=== PATIENT | female | born 1965 | race Caucasian/White ===

== ENCOUNTER 2017-12-23 12:16 | Observation (INO) ==
[2017-12-23] MEDS ORDERED: ZOFRAN INJ 4 MG VIAL IVP PRN (13:41)
--- NOTE | 2017-12-23 13:47 | DR.H&P ---
H&P - History & Physical for Day of: H&P Date: 12/23/17 - Chief Complaint Chief Complaint: "feels weak, sick on stomach" hyperglycemia - History of Present Illness History of Present Illness: 52 WF DIRECT ADMIT FROM DR LAWRENCE OFFICE WITH HYPERGLYCEMIA, MODERATE URINE KETONES, WEAKNESS AND CO "SICK ON HER STOMACH". PT IS TYPE 2 DIABETIC, SEEN EARLIER IN THE [place] IN OFFICE NEW PATIENT AND HAD LABS, RESULT REVEALED CRITICAL GLUCOSE >600. PT STATES SHE HAS NOVOLOG AND LEVEMIR AT HOME BUT NOT COMPLIANT DUE TO NO GLUCOMETER. PT STATES SHE HAS BEEN SICK ON AND OFF FOR MONTH. PT HAD REPEAT GLUCOSE IN OFFICE >400. PT HAS PMH OF DM, OA, HTN, ИРИНА, ASTHM/COPD. PT ADMITTED FOR TREATMENT OF HYPERCYLEMIA, R/O DKA , HYDRATION. - Past Medical History Past Medical History: Anxiety, Arthritis, Asthma, COPD, Depression, Diabetes, GERD, Hypertension - Past Surgical History Surgical History: Unknown - Family History Family Medical History: Coronary Artery Disease, Hypertension - Social History Does patient currently use any type of tobacco product: No Have you used tobacco products in the last 12 months: No Type of Tobacco Use: None Does any household member use tobacco: No Alcohol Use: None Drug Use: None - Review of Systems Constitutional: Weakness, Malaise Eyes: No Symptoms Reported ENT: No Symptoms Reported Respiratory: SOB with Excertion Cardiovascular: No Symptoms Reported, Edema Gastrointestinal: Nausea, Vomiting Genitourinary: No Symptoms Reported Musculoskeletal: Leg Pain Skin: No Symptoms Reported Neurological: Weakness Oriented: Normal Eyes: Normal Ear: Normal Nose: Normal Throat: Normal Respiratory: RLL Diminished, LLL Diminished Cardiovascular: Normal, Edema : Normal Auscultation: Bowel Sounds: Normal Palpation: Normal Tenderness: Epigastric Skin: Normal Musculoskeletal: Right, Left, Knee Psychiatric: Anxiety, Depression Mood Description: Depressed Speech Pattern: Clear, Appropriate - Assessment/Plan (1) Weakness Status: Acute Plan: ADMIT, ADMISSION LABS. CBC CMP MAG UA, URINE AND SERUM ACETONE, ABG ON ADMISSION. RESUME LEVEMIR AND SSI, IV HYDRATION. I & OS, EKG AND CXR ON ADMISSION. VERIFY HOME MEDS, NAUSEA CONTROL (2) Hyperglycemia due to type 2 diabetes mellitus Status: Acute (3) Urine ketones Status: Acute (4) Hypertension Status: Acute (5) Nausea and vomiting Status: Acute
[2017-12-23 13:50] LABS: BASOPHILS % (AUTO) 0.9 % (0.2-1.0); EOSINOPHILS # (AUTO) 0.1 x10^3/uL (0.0-0.2); EOSINOPHILS % (AUTO) 2.2 % (0.9-2.9); HEMATOCRIT 42.5 % (36.0-47.0); HEMOGLOBIN 14.1 g/dL (12.0-16.0); LYMPHOCYTES # (AUTO) 1.9 X10^3/uL (1.3-2.9); LYMPHOCYTES % (AUTO) 38.2 % (21.0-51.0); MEAN CORPUSCULAR HEMOGLOBIN 29.7 pg (27.0-34.0); MEAN CORPUSCULAR HGB CONC 33.1 g/dL (33.0-35.0); MEAN CORPUSCULAR VOLUME 89.8 fL (80.0-100.0); MEAN PLATELET VOLUME 8.4 fL (7.4-11.0); MONOCYTES # (AUTO) 0.4 x10^3/uL (0.3-0.8); NEUTROPHILS # (AUTO) 2.6 x10^3/uL (2.2-4.8); NEUTROPHILS % (AUTO) 51.7 % (42.0-75.0); PLATELET COUNT 208 X10^3/uL (150.0-450.0); RED BLOOD COUNT 4.73 X10^6/uL (3.5-5.4); WHITE BLOOD COUNT 5.1 X10^3/uL (3.6-10.0)
[2017-12-23 14:00] LABS: ALANINE AMINOTRANSFERASE 18 Units/L (12-78); ALBUMIN 3.2 g/dL (3.4-5.0); ALKALINE PHOSPHATASE 51 Units/L (46-116); ASPARTATE AMINO TRANSFERASE 9 Units/L (15-37); BLOOD UREA NITROGEN 14 mg/dL (7-18); CALCIUM 8.7 mg/dL (8.5-10.1); CHLORIDE 94 mmol/L (98-107); COR CA(FOR HYPOALB) 9.3 mg/dL (8.5-10.1); SODIUM 129 mmol/L (136-145); TOTAL PROTEIN 6.9 g/dL (6.4-8.2); eGFR NON BLACK RACES > 60 (>60)
[2017-12-23 14:01] LABS: SERUM ACETONE SMALL (NEGATIVE)
[2017-12-23 14:11] LABS: COR NA(FOR HYPERGLY) 140 mmol/L (136-145)
[2017-12-23 14:12] LABS: CARBON DIOXIDE 28.5 mmol/L (21-32)
[2017-12-23] MEDS: NS 1000 ML 1,000 ML IV SCH (14:13)
[2017-12-23 14:16] LABS: ABG ALLEN TEST POS PT TOL WELL. CDN
[2017-12-23] MEDS: HumuLIN R SUBCUT PRN ×3 (14:27→22:00)
[2017-12-23] MEDS: PROTONIX INJ 40 MG VIAL IVP SCH (14:28)
--- NOTE | 2017-12-23 14:57 | RAD ---
HISTORY: Weakness Study: Chest AP portable Comparison: None Findings: The heart is within normal limits in size. The galen are normal. The lungs are well inflated and free of acute alveolar infiltrates. No pleural effusions are identified. The bony thorax is unremarkable IMPRESSION: No significant abnormality identified Reported By:
[2017-12-23 15:01] LABS: BILIRUBIN,URINE NEGATIVE (NEGATIVE); BLOOD/HEMOGLOBIN,URINE NEGATIVE (NEGATIVE); GLUCOSE, URINE 4+ (NEGATIVE); KETONES,URINE 3+ (NEGATIVE); LEUKOCYTE ESTERASE ,URINE NEGATIVE (NEGATIVE); NITRITES,URINE NEGATIVE (NEGATIVE); PROTEIN,URINE NEGATIVE (NEGATIVE); UROBILINOGEN,URINE NORMAL (NORMAL)
[2017-12-23 15:04] LABS: APPEARANCE,URINE CLEAR (CLEAR); COLOR,URINE YELLOW (YELLOW)
[2017-12-23] MEDS ORDERED: TYLENOL 325 MG TAB PO PRN (18:55)
[2017-12-23] MEDS ORDERED: SNACK - Diabetic Appropriate PO SCH (20:00)
[2017-12-23] MEDS ORDERED: LEVEMIR SC SCH (21:00)
[2017-12-24] MEDS ORDERED: MAALOX or MYLANTA PO PRN (02:07)
[2017-12-24] MEDS: NS 1000 ML 1,000 ML IV SCH (05:18)
[2017-12-24 06:32] LABS: BASOPHILS % (AUTO) 0.7 % (0.2-1.0); EOSINOPHILS # (AUTO) 0.2 x10^3/uL (0.0-0.2); EOSINOPHILS % (AUTO) 3.4 % (0.9-2.9); HEMATOCRIT 37.2 % (36.0-47.0); HEMOGLOBIN 12.6 g/dL (12.0-16.0); LYMPHOCYTES # (AUTO) 2.5 X10^3/uL (1.3-2.9); LYMPHOCYTES % (AUTO) 47.8 % (21.0-51.0); MEAN CORPUSCULAR HEMOGLOBIN 29.6 pg (27.0-34.0); MEAN CORPUSCULAR VOLUME 87.1 fL (80.0-100.0); MEAN PLATELET VOLUME 8.4 fL (7.4-11.0); MONOCYTES # (AUTO) 0.4 x10^3/uL (0.3-0.8); MONOCYTES % (AUTO) 8.2 % (0.0-13.0); NEUTROPHILS # (AUTO) 2.1 x10^3/uL (2.2-4.8); NEUTROPHILS % (AUTO) 39.9 % (42.0-75.0); PLATELET COUNT 193 X10^3/uL (150.0-450.0); RED BLOOD COUNT 4.27 X10^6/uL (3.5-5.4); RED CELL DISTRIBUTION WIDTH 12.8 % (11.6-16.5); WHITE BLOOD COUNT 5.2 X10^3/uL (3.6-10.0)
[2017-12-24] MEDS: HumuLIN R SUBCUT PRN ×2 (06:32→12:16)
[2017-12-24 06:38] LABS: ALANINE AMINOTRANSFERASE 19 Units/L (12-78); ALBUMIN 2.6 g/dL (3.4-5.0); ALKALINE PHOSPHATASE 33 Units/L (46-116); ASPARTATE AMINO TRANSFERASE 21 Units/L (15-37); BLOOD UREA NITROGEN 13 mg/dL (7-18); CALCIUM 7.9 mg/dL (8.5-10.1); CARBON DIOXIDE 30.1 mmol/L (21-32); CHLORIDE 105 mmol/L (98-107); COR NA(FOR HYPERGLY) 143 mmol/L (136-145); CREATININE 0.61 mg/dL (0.55-1.02); SODIUM 140 mmol/L (136-145); TOTAL PROTEIN 5.6 g/dL (6.4-8.2); eGFR NON BLACK RACES > 60 (>60)
[2017-12-24] MEDS ORDERED: K-LYTE EFFERVESCENT PO PRN (07:00)
[2017-12-24] MEDS ORDERED: K-RIDER 10 MEQ/NS 100 ML 10 MEQ/100 ML BAG IV PRN (07:00)
[2017-12-24] MEDS ORDERED: POTASSIUM CHL 40 MEQ/NS 0.45% 500 ML IV PRN (07:00)
[2017-12-24] MEDS ORDERED: POTASSIUM CHL 60 MEQ/NS 0.45% 500 ML IV PRN (07:00)
[2017-12-24] MEDS ORDERED: POTASSIUM CHLORIDE LIQ 20 MEQ UDC PO PRN (07:00)
[2017-12-24] MEDS: PROTONIX INJ 40 MG VIAL IVP SCH (09:04)
[2017-12-24 12:06] VITALS: BP 116/73
[2017-12-24 13:30] VITALS: BMI 37.4
== END 2017-12-24 14:25 | disposition home or self-care (01) ==
LOC: MED/SURG
PROVIDERS: ADMIT Internal Medicine; ATTEND Internal Medicine
DX: J90 Pleural effusion, not elsewhere classified; R94.31 Abnormal electrocardiogram [ECG] [EKG]; R07.89 Other chest pain; E11.65 Type 2 diabetes mellitus with hyperglycemia; I50.9 Heart failure, unspecified; I51.7 Cardiomegaly; J81.1 Chronic pulmonary edema; R06.02 Shortness of breath
CPT/HCPCS: 36415; 36600; 71010; 71045; 80053; 81003; 82009; 82803; 82947; 83735; 84681; 85025; 93005; 93010; A4222; C9113; G0378; J1815; J3490; J7030; J8499